=== PATIENT | male | born 1995 | race Caucasian/White ===

== ENCOUNTER 2023-03-08 14:58 | Outpatient (OUT) | payer OTHER, SELFPAY ==
--- NOTE | 2023-03-08 | XR_ITS ---
The [address] [address] Patient Name: AHMET VEGA MRN: [id number] date: 1995 Sex: M Assigned Patient Location: LAB Current Patient Location: LAB Accession/Order Number: [id number] Exam Date: 03/08/2023 15:30 Report Date: 03/08/2023 16:11 At the request of: SHAIKH MARY Procedure: XR lumbar spine 2-3V EXAMINATION: XR lumbar spine 2-3V HISTORY: LOW BACK PAIN M54.50 COMPARISON: No relevant comparison available. FINDINGS: BONES: Slight anterior wedging of T12, L1, L2 vertebral bodies which is suspected to be developmental. No convincing fracture or bone lesion. 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 DISC SPACES: Mild narrowing L2-3. PARASPINOUS: Negative. No paraspinous abnormality is seen. OTHER: Negative. IMPRESSION: 1. 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 2. Consider MRI of lumbar spine if symptoms persist. Electronically authenticated by: HATTIE IRAHETA Date: 03/08/2023 16:11
--- NOTE | 2023-03-08 | XR_ITS ---
The [address] [address] Patient Name: AHMET VEGA MRN: [id number] date: 1995 Sex: M Assigned Patient Location: LAB Current Patient Location: LAB Accession/Order Number: [id number] Exam Date: 03/08/2023 15:30 Report Date: 03/08/2023 16:04 At the request of: SHAIKH MARY Procedure: XR foot LISBETH min 3V EXAMINATION: XR foot LISBETH min 3V HISTORY: FOOT PAIN, BILATERAL M79.671 M 79.672 ; no known injury COMPARISON: No relevant comparison available. FINDINGS: RIGHT FINDINGS: BONES: No significant arthropathy or acute abnormality. SOFT TISSUES: No visible soft tissue swelling. OTHER: Negative. LEFT FINDINGS: BONES: No significant arthropathy or acute abnormality. SOFT TISSUES: No visible soft tissue swelling. OTHER: Negative. IMPRESSION: RIGHT CONCLUSION: Unremarkable right foot. LEFT CONCLUSION: Unremarkable left foot. Electronically authenticated by: HATTIE IRAHETA Date: 03/08/2023 16:04
[2023-03-08 15:30] LABS: Basophils Absolute Auto 0.1 10^3/uL (0.0-0.1); Basophils Percent Auto 0.8 % (0.2-2.0); Eosinophils Absolute Auto 0.2 10^3/uL (0.0-0.7); Eosinophils Percent Auto 2.4 % (0.9-7.0); Hematocrit 41.1 % (42.0-54.0); Hemoglobin 13.8 g/dL (14.0-18.0); Immature Granulocytes Abs Auto 0.03 10^3/uL (0.00-0.03); Immature Granulocytes Pct Auto 0.4 % (0.0-0.5); Lymphocytes Absolute Auto 2.2 10^3/uL (1.2-3.8); Lymphocytes Percent Auto 27.6 % (20.5-60.0); Mean Corpuscular HGB Conc 33.6 g/dL (29.9-35.2); Mean Corpuscular Hemoglobin 28.6 pg (25.9-34.0); Mean Corpuscular Volume 85.1 fL (80.0-94.0); Mean Platelet Volume 8.6 fL (9.5-13.5); Monocytes Absolute Auto 0.4 10^3/uL (0.3-0.8); Monocytes Percent Auto 5.6 % (1.7-12.0); Neutrophils Percent Auto 63.2 % (43.0-75.0); Platelet Count 435 10^3/uL (150-450); Red Blood Count 4.83 10^6/uL (4.70-6.10); Red Cell Distribution Width 13.7 % (11.0-15.0); White Blood Count 7.9 10^3/uL (4.0-11.0)
[2023-03-08 16:01] LABS: Estimated Average Glucose 131 mg/dL; Glycohemoglobin A1C 6.2 % (4.5-6.2)
[2023-03-08 16:12] LABS: Alanine Aminotransferase 36 U/L (16-63); Albumin Globulin Ratio 0.9; Albumin Level 3.8 g/dL (3.4-5.0); Alkaline Phosphatase 68 U/L (46-116); Anion Gap 11.6; Aspartate Amino Transferase 13 U/L (15-37); BUN Creatinine Ratio 8.1; Bilirubin Total 0.3 mg/dL (0.2-1.0); Calcium 9.1 mg/dL (8.5-10.1); Carbon Dioxide 31.1 mmol/L (21.0-32.0); Chloride 99 mmol/L (98-107); Estimated GFR (African America >60 (>=60); Estimated GFR (Non-African Ame >60 (>=60); Globulin 4.3 g/dL; Glucose 162 mg/dL (74-106); Potassium 3.7 mmol/L (3.5-5.1); Sodium 138 mmol/L (136-145); Total Protein 8.1 g/dL (6.4-8.2)
== END 2023-03-08 14:59 ==
LOC: LAB 15:04
PROVIDERS: PCP Internal Medicine; Visit Provider Internal Medicine
DX: E11.9 Type 2 diabetes mellitus without complications (principal); I10 Essential (primary) hypertension; M54.50 Low back pain, unspecified; M79.671 Pain in right foot; M79.672 Pain in left foot
CPT/HCPCS: 36415; 72100; 73630; 80053; 83036; 85025